=== PATIENT | female | born 2000 | race Caucasian/White ===

== ENCOUNTER 2021-10-11 13:20 | Outpatient (CLI) | payer BC, SELFPAY ==
[2021-10-11 17:03] LABS: HIV 1/2/P24 Combo Screen* Negative (Negative)
[2021-10-13 19:18] LABS: Rapid Plasma Reagin (RPR) Non Reactive (Non Reactive)
== END 2021-10-11 13:21 | disposition home or self-care (01) ==
LOC: NFLDREF 13:30
PROVIDERS: PCP Physician Assistant Medical; Visit Provider Physician Assistant
DX: Z11.3 Encounter for screening for infections with a predominantly sexual mode of transmission (principal); Z30.431 Encounter for routine checking of intrauterine contraceptive device
CPT/HCPCS: 86592; 86703; 87491; 87591

== ENCOUNTER 2022-05-29 14:44 | Outpatient (REF) | payer BC, SELFPAY ==
[2022-05-29 16:16] LABS: Basophils Absolute Auto 0.03 K/uL (0.00-0.30); Basophils Percent Auto 0.4 % (0.0-3.0); Eosinophils Absolute Auto 0.36 K/uL (0.00-0.50); Eosinophils Percent Auto 4.4 % (0.0-7.0); Hemoglobin* 14.1 gm/dL (12.0-16.0); Immature Granulocytes Abs Auto 0.01 K/uL (0.00-0.30); Immature Granulocytes Pct Auto 0.1 %; Lymphocytes Percent Auto 46.5 % (20-44); Mean Corpuscular HGB Conc 33 gm/dL (32-36); Mean Corpuscular Hemoglobin 29 pg (26-34); Mean Corpuscular Volume 87 fL (80-100); Monocytes Percent Auto 8.6 % (0.0-11.0); Platelet Count* 484 K/uL (140-440); RDW Coefficient of Variation % 12.4 % (11.5-15.5); Red Blood Count 4.94 m/uL (4.00-5.20); White Blood Count* 8.15 K/uL (4.50-11.00)
[2022-05-29 16:20] LABS: Slide Review Reflex No
[2022-05-29 16:23] LABS: Albumin* 4.8 g/dL (3.3-5.0); Chloride* 102 mmol/L (96-114)
[2022-05-29 16:24] LABS: Potassium* 4.6 mmol/L (3.6-5.1); Sodium* 138 mmol/L (135-149)
[2022-05-29 16:26] LABS: Cholesterol* 173 mg/dL (90-199); Estimated Glomerular Filt Rate 83 ml/min
[2022-05-29 16:27] LABS: Alanine Aminotransferase* 16 U/L (4-35); Alkaline Phosphatase* 53 U/L (40-150); Aspartate Amino Transferase* 22 U/L (12-35); Bilirubin Total* 0.8 mg/dL (0.1-1.5); Blood Urea Nitrogen* 19 mg/dL (5-24); Calcium* 10.2 mg/dL (8.4-10.6); Carbon Dioxide* 27 mmol/L (20-32); Glucose* 89 mg/dL (60-115); HDL Cholesterol* 72 mg/dL (>=50); LDL Cholesterol Calculated 91 mg/dL (<100); Total Protein* 7.8 g/dL (6.0-8.3); Triglycerides* 48 mg/dL (40-149)
== END 2022-05-29 14:45 | disposition home or self-care (01) ==
LOC: NPINS 14:44
PROVIDERS: PCP Physician Assistant Medical
DX: F31.81 Bipolar II disorder (principal); F41.1 Generalized anxiety disorder; F90.0 Attention-deficit hyperactivity disorder, predominantly inattentive type
CPT/HCPCS: 80053; 80061; 83036; 85025

== ENCOUNTER 2022-10-06 10:44 | Outpatient (CLI) | payer BC, SELFPAY ==
[2022-10-06 18:58] LABS: Chlamydia DNA Amplified* NOT DETECTED (No Detected); GC DNA Amplified* NOT DETECTED (No Detected)
== END 2022-10-06 10:45 | disposition home or self-care (01) ==
LOC: NFLDREF 10:44
PROVIDERS: PCP Physician Assistant Medical; Visit Provider Physician Assistant
DX: Z01.419 Encounter for gynecological examination (general) (routine) without abnormal findings (principal); Z11.3 Encounter for screening for infections with a predominantly sexual mode of transmission
CPT/HCPCS: 87491; 87591